=== PATIENT | male | born 1970 ===

== ENCOUNTER → 2022-03-20 | Day surgery (SDC) | payer BC ==
[~2022-03-20] MED LIST: Glycopyrrolate 0.2 MG/ML 5 ML MDV IV ONE; Ketamine 500 mg/10 ML MDV IV ONE; Midazolam 1 MG/ML 2 ML SDV IV ONE; Propofol 200 MG/20 ML SDV IV ONE; Sodium Chloride 0.9% 10 ML Syringe FLUSH PRN; fentaNYL 100 MCG/2 ML SDV IV ONE
[2022-03-20] MEDS: Lactated Ringers 1,000 ML IV SCH (08:15)
[2022-03-20] MEDS: Simethicone Drops 40 MG/0.6 ML 30 ML Bottle PO ONE (09:17)
== END ==
LOC: FB.SDS 07:26
PROVIDERS: ATTEND Surgery
DX: Z12.11 Encounter for screening for malignant neoplasm of colon (principal); D12.6 Benign neoplasm of colon, unspecified; K57.30 Diverticulosis of large intestine without perforation or abscess without bleeding; I10 Essential (primary) hypertension; E03.8 Other specified hypothyroidism; E78.5 Hyperlipidemia, unspecified; E66.01 Morbid (severe) obesity due to excess calories; Z79.899 Other long term (current) drug therapy; Z68.43 Body mass index [BMI] 50.0-59.9, adult; Z98.890 Other specified postprocedural states
CPT/HCPCS: 00812-QZ; 88305; A9270-GY; J2250; J2704; J3010; J3490; J7120